=== PATIENT | female | born 1945 | race Caucasian/White ===

== ENCOUNTER → 2016-08-13 | Outpatient (CLI) | payer MEDICARE, OTHER | END | disposition home or self-care (01) | LOC: CFH 11:56 | PROVIDERS: ATTEND Internal Medicine Cardiovascular Disease | DX: I08.3 Combined rheumatic disorders of mitral, aortic and tricuspid valves (principal) | CPT/HCPCS: 93306 ==

== ENCOUNTER 2016-09-04 10:12 | Day surgery (SDC) | payer MEDICARE, OTHER ==
[2016-09-03 15:04] VITALS: BP 161/62
[~2016-09-04] VITALS: Ht 162.6 cm; Wt 47.7 kg
[~2016-09-04 10:12] MED LIST: ATOR10TA PO; LISI-167 PO; MESA800T2 PO
[2016-09-04] MEDS ORDERED: SODIUM CHLORIDE 0.9% 1,000 ML IV SCH (11:00)
== END 2016-09-04 13:51 | disposition home or self-care (01) ==
LOC: CACL 10:12 → EDSTATUS 12:30 → CACL 13:51
PROVIDERS: ATTEND Internal Medicine Cardiovascular Disease
DX: I34.0 Nonrheumatic mitral (valve) insufficiency (principal); I35.1 Nonrheumatic aortic (valve) insufficiency; I36.1 Nonrheumatic tricuspid (valve) insufficiency; I44.7 Left bundle-branch block, unspecified; I10 Essential (primary) hypertension; Z88.2 Allergy status to sulfonamides; E78.2 Mixed hyperlipidemia
CPT/HCPCS: 93312; 93325

== ENCOUNTER 2016-11-05 09:52 | Day surgery (SDC) | payer MEDICARE, OTHER ==
[~2016-11-05] VITALS: Ht 162.6 cm; Wt 47.3 kg
[2016-11-05] MEDS ORDERED: BISACODYL 10 MG SUPP PR PRN (11:30)
[2016-11-05] MEDS ORDERED: BISACODYL 5 MG EC TABLET PO PRN (11:30)
[2016-11-05] MEDS ORDERED: ASPIRIN 325 MG TABLET EC PO ONE (11:30)
[2016-11-05] MEDS ORDERED: ONDANSETRON 2MG/ML, 2ML IVPush PRN (11:30)
[2016-11-05] MEDS ORDERED: ACETAMINOPHEN 325 MG TABLET PO PRN (11:30)
[2016-11-05] MEDS ORDERED: ZOLPIDEM 5MG TABLET PO PRN (11:30)
[2016-11-05 12:09] LABS: HEMATOCRIT 40.4 % (34.6-47.8); HEMOGLOBIN 13.1 g/dL (11.7-16.4); WHITE BLOOD COUNT 8.2 x10^3/uL (3.4-10)
[2016-11-05 12:17] LABS: BLOOD UREA NITROGEN 19 mg/dL (7-18)
[2016-11-05] MEDS ORDERED: BIVALIRUDIN 250 MG ONE (13:45)
[2016-11-05] MEDS ORDERED: TICAGRELOR 90 MG TABLET ONE (13:45)
[2016-11-05] MEDS ORDERED: VERAPAMIL 2.5 MG/ML, 2ML ONE (13:45)
[2016-11-05] MEDS ORDERED: MIDAZOLAM 1 MG/ML, 5ML ONE ×2 (13:45→14:44)
[2016-11-05] MEDS ORDERED: FENTANYL PF 100 MCG/2ML ONE (13:45)
[2016-11-05] MEDS ORDERED: LIDOCAINE 2%, 20ML ONE (13:46)
[2016-11-05] MEDS ORDERED: HEPARIN 1,000 UNITS/ML, 10ML ONE (13:46)
[2016-11-05] MEDS ORDERED: SODIUM CHLORIDE 0.9% 1,000 ML IV SCH (14:57)
== END 2016-11-05 16:30 ==
LOC: CACL 09:52
PROVIDERS: ATTEND Internal Medicine Cardiovascular Disease
DX: I34.0 Nonrheumatic mitral (valve) insufficiency (principal); E78.2 Mixed hyperlipidemia; I10 Essential (primary) hypertension; Z88.1 Allergy status to other antibiotic agents
CPT/HCPCS: 36415; 71020; 80048; 85025; 93458; 99156; C1769; C1894; J1644; J2250; J3010; J3490; Q9967; J0583

== ENCOUNTER 2016-11-14 04:35 | Inpatient (IN) | payer MEDICARE, OTHER ==
[2016-11-13 14:14] LABS: HEMATOCRIT 39.6 % (34.6-47.8); HEMOGLOBIN 12.9 g/dL (11.7-16.4); WHITE BLOOD COUNT 8.5 x10^3/uL (3.4-10)
[2016-11-13 14:23] LABS: ASPARTATE AMINO TRANSFERASE 23 U/L (15-37); BLOOD UREA NITROGEN 18 mg/dL (7-18)
[~2016-11-14] VITALS: Ht 162.6 cm; Wt 49.0 kg
[2016-11-14] MEDS ORDERED: ALBUMIN HUMAN 5% 500 ML IV ONE ×2 (05:00→19:30)
[2016-11-14 05:30] VITALS: BP_SYST 139; BP_SYST 148; BP_DIAS 74; BP_DIAS 75
[2016-11-14] MEDS ORDERED: CHLORHEXIDINE MOUTHWASH 15 ML UDC MM SCH (06:00)
[2016-11-14] MEDS: MUPIROCIN OINT 2%, 22GM TP SCH ×2 (06:17→20:48)
[2016-11-14 06:22] VITALS: BP 137/64
[2016-11-14] MEDS ORDERED: FENTANYL PF 1000 MCG/20ML ONE (06:29)
[2016-11-14] MEDS ORDERED: MIDAZOLAM 10MG/2 ML ONE (06:29)
[2016-11-14] MEDS ORDERED: POTASSIUM CHLORIDE 80 MEQ, SODIUM BICARBONATE 8.4% 10 MEQ, MAGNESIUM SULFATE 0.5 GM, LI... IV PRN (07:30)
[2016-11-14] MEDS ORDERED: VANCOMYCIN 800 MG in SODIUM CHLORIDE 0.9% 100 ML IV PRN (07:30)
[2016-11-14] MEDS ORDERED: DEXMEDETOMIDINE 200 MCG in SODIUM CHLORIDE 0.9% 48 ML IV SCH (07:30)
[2016-11-14] MEDS ORDERED: PHENYLEPHRINE 10 MG in SODIUM CHLORIDE 0.9% 249 ML IV PRN ×3 (07:30→19:30)
[2016-11-14] MEDS ORDERED: CEFUROXIME 1.5 GM in SODIUM CHLORIDE 0.9% 50 ML IVPB PRN (07:30)
[2016-11-14] MEDS ORDERED: REGULAR INSULIN 62.5 UNITS in SODIUM CHLORIDE 0.9% 249.375 ML IV PRN ×2 (07:30→10:03)
[2016-11-14] MEDS ORDERED: EPINEPHRINE 2 MG in SODIUM CHLORIDE 0.9% 248 ML IV SCH (07:30)
[2016-11-14] MEDS ORDERED: MANNITOL PMX 20% 500 ML IVPB PRN (07:30)
[2016-11-14] MEDS: SODIUM CHLORIDE FLUSH 10ML SYR IVF SCH ×3 (09:00→20:47)
[2016-11-14] MEDS ORDERED: NITROGLYCERIN/D5W PMX 250 ML IV PRN (10:03)
[2016-11-14] MEDS ORDERED: DEXMEDETOMIDINE 200 MCG in SODIUM CHLORIDE 0.9% 48 ML IV PRN (10:03)
[2016-11-14] MEDS ORDERED: DOBUTAMINE 250 MG in SODIUM CHLORIDE 0.9% 230 ML IV PRN (10:03)
[2016-11-14] MEDS ORDERED: SODIUM CHLORIDE 0.9% 1,000 ML IV PRN (10:03)
[2016-11-14] MEDS ORDERED: AMINOCAPROIC ACID 250 MG/ML, 20ML ONE (10:17)
[2016-11-14] MEDS ORDERED: LIDOCAINE 2% 100MG/5ML SYRINGE ONE (10:17)
[2016-11-14] MEDS ORDERED: CALCIUM CHLORIDE 10%, 10ML SYR ONE (10:17)
[2016-11-14] MEDS ORDERED: PROTAMINE SULFATE 10 MG/ML, 25ML ONE (10:17)
[2016-11-14] MEDS ORDERED: HEPARIN 1,000 UNITS/ML, 30ML ONE (10:17)
[2016-11-14] MEDS ORDERED: ALBUMIN HUMAN 25% 50 ML ONE (10:17)
[2016-11-14] MEDS ORDERED: methylPREDNISolone SOD SUCC 125 MG/2 ML ONE (10:18)
[2016-11-14] MEDS ORDERED: ACETAMINOPHEN 325 MG TABLET PO PRN (10:30)
[2016-11-14] MEDS ORDERED: MIDAZOLAM 1 MG/ML, 5ML IVPush PRN (10:30)
[2016-11-14] MEDS ORDERED: ACETAMINOPHEN 650 MG SUPP PR PRN (10:30)
[2016-11-14] MEDS ORDERED: MEPERIDINE/PF 25MG/0.5ML IVPush PRN (10:30)
[2016-11-14] MEDS ORDERED: EPINEPHRINE 2 MG in SODIUM CHLORIDE 0.9% 248 ML IV PRN (10:30)
[2016-11-14] MEDS ORDERED: BISACODYL 10 MG SUPP PR PRN (10:30)
[2016-11-14] MEDS ORDERED: DEXTROSE 4 GM TAB.CHEW PO PRN (10:30)
[2016-11-14] MEDS: KSCALE TO 4.5 IV SCH ×3 (10:30→22:30)
[2016-11-14] MEDS ORDERED: INSULIN ASPART 100 UNITS/ML, PEN SQ-INSULIN PRN (10:30)
[2016-11-14] MEDS ORDERED: SODIUM BICARB 8.4%, 50ML SYRINGE IV PRN (10:30)
[2016-11-14] MEDS ORDERED: VANCOMYCIN 700 MG in SODIUM CHLORIDE 0.9% 250 ML IVPB SCH (10:30)
[2016-11-14] MEDS ORDERED: CEFUROXIME 1.5 GM in SODIUM CHLORIDE 0.9% 50 ML IVPB SCH (10:30)
[2016-11-14] MEDS ORDERED: DEXTROSE 50%, 50ML SYRINGE IVPush PRN (10:30)
[2016-11-14] MEDS ORDERED: PROCHLORPERAZINE 5 MG/ML, 2ML IVPush PRN (10:30)
[2016-11-14] MEDS ORDERED: GLUCAGON 1 MG IM PRN (10:30)
[2016-11-14 10:44] LABS: ABG COLLECTION SITE ARTERIAL LINE
[2016-11-14] MEDS: MAGNESIUM SULFATE 1 GM in SODIUM CHLORIDE 0.9% 50 ML IVPB SCH (10:45)
[2016-11-14 10:54] LABS: HEMATOCRIT 25.9 % (34.6-47.8); HEMOGLOBIN 8.5 g/dL (11.7-16.4)
[2016-11-14] MEDS ORDERED: POTASSIUM CHLORIDE PMX 100 ML IV ONE (11:30)
[2016-11-14] MEDS: LACTATED RINGERS 500 ML IVBOLUS PRN ×2 (12:00→13:00)
[2016-11-14] MEDS: morphine SULFATE 10 MG/ML, 1ML IVPush PRN (14:46)
[2016-11-14] MEDS: ONDANSETRON 2MG/ML, 2ML IVPush PRN ×2 (16:19→20:07)
[2016-11-14] MEDS: LACTATED RINGERS 1,000 ML IV PRN ×2 (16:40→17:45)
[2016-11-14 17:07] LABS: HEMATOCRIT 25.5 % (34.6-47.8); HEMOGLOBIN 8.2 g/dL (11.7-16.4)
[2016-11-14] MEDS ORDERED: POTASSIUM CHLORIDE 30 MEQ in SODIUM CHLORIDE 0.9% 100 ML IV ONE (19:00)
[2016-11-14] MEDS ORDERED: CALCIUM CHLORIDE 13.6 MEQ in SODIUM CHLORIDE 0.9% 100 ML IV ONE (19:30)
[2016-11-14] MEDS ORDERED: ALBUMIN HUMAN 25% 100 ML IV ONE (20:30)
[2016-11-14] MEDS: CEFUROXIME 1.5 GM in SODIUM CHLORIDE 0.9% 50 ML IVPB SCH (20:46)
[2016-11-14] MEDS: MUPIROCIN OINT 2%, 22GM NAS SCH (20:48)
[2016-11-14] MEDS: DOCUSATE 100 MG CAPSULE PO SCH (20:48)
[2016-11-14] MEDS: VANCOMYCIN 700 MG in SODIUM CHLORIDE 0.9% 100 ML IVPB SCH (21:33)
[2016-11-14 22:15] LABS: HEMATOCRIT 25.1 % (34.6-47.8); HEMOGLOBIN 8.2 g/dL (11.7-16.4)
[2016-11-15] VITALS (8 sets, daily range): BP systolic 110–129; BP diastolic 45–65
[2016-11-15] MEDS: HYDROcodone/APAP 10/325 MG TABLET PO PRN ×4 (00:08→20:39)
[2016-11-15] MEDS: morphine SULFATE 10 MG/ML, 1ML IVPush PRN (02:03)
[2016-11-15] MEDS: OXYcodone IR 5MG TABLET PO PRN ×2 (02:03→16:19)
[2016-11-15 04:53] LABS: ABG COLLECTION SITE ARTERIAL LINE
[2016-11-15 05:00] LABS: BLOOD UREA NITROGEN 13 mg/dL (7-18)
[2016-11-15 05:05] LABS: HEMATOCRIT 24.4 % (34.6-47.8); WHITE BLOOD COUNT 13.7 x10^3/uL (3.4-10)
[2016-11-15] MEDS: INSULIN ASPART 100 UNITS/ML, PEN SQ-INSULIN SCH ×2 (07:03→11:33)
[2016-11-15] MEDS ORDERED: ROCURONIUM 10 MG/ML ONE (07:21)
[2016-11-15] MEDS ORDERED: PROPOFOL 10 MG/ML, 20ML ONE (07:21)
[2016-11-15] MEDS: KSCALE TO 4.5 IV SCH ×2 (07:33→11:29)
[2016-11-15] MEDS: CEFUROXIME 1.5 GM in SODIUM CHLORIDE 0.9% 50 ML IVPB SCH (07:44)
[2016-11-15] MEDS: MUPIROCIN OINT 2%, 22GM NAS SCH ×2 (08:27→20:39)
[2016-11-15] MEDS: ONDANSETRON 2MG/ML, 2ML IVPush PRN (08:27)
[2016-11-15] MEDS: SODIUM CHLORIDE FLUSH 10ML SYR IVF SCH ×4 (08:27→20:39)
[2016-11-15] MEDS: PANTOPRAZOLE 40 MG IV IVPush SCH (08:27)
[2016-11-15] MEDS: MUPIROCIN OINT 2%, 22GM TP SCH ×2 (08:28→20:39)
[2016-11-15] MEDS: DOCUSATE 100 MG CAPSULE PO SCH ×2 (08:28→20:39)
[2016-11-15] MEDS: ASPIRIN 81 MG TABLET EC PO SCH (08:28)
[2016-11-15] MEDS: VANCOMYCIN 700 MG in SODIUM CHLORIDE 0.9% 100 ML IVPB SCH (09:14)
[2016-11-15] MEDS: CHLORHEXIDINE MOUTHWASH 15 ML UDC MM SCH ×2 (10:11→22:30)
[2016-11-15] MEDS: MAGNESIUM SULFATE 1 GM in SODIUM CHLORIDE 0.9% 50 ML IVPB SCH (10:11)
[2016-11-15 11:09] LABS: HEMATOCRIT 23.5 % (34.6-47.8); HEMOGLOBIN 7.7 g/dL (11.7-16.4)
[2016-11-15] MEDS ORDERED: ALBUMIN HUMAN 5% 500 ML IV ONE (13:00)
[2016-11-15 17:00] LABS: HEMOGLOBIN 7.3 g/dL (11.7-16.4)
[2016-11-15 17:01] LABS: HEMATOCRIT 22.6 % (34.6-47.8)
[2016-11-15] MEDS ORDERED: WARFARIN 5 MG TABLET PO-COUM SCH (18:00)
[2016-11-16] MEDS: OXYcodone IR 5MG TABLET PO PRN ×4 (02:35→18:10)
[2016-11-16] MEDS: HYDROcodone/APAP 10/325 MG TABLET PO PRN (02:35)
[2016-11-16 05:36] LABS: HEMATOCRIT 38.7 % (34.6-47.8); HEMOGLOBIN 12.5 g/dL (11.7-16.4); WHITE BLOOD COUNT 14.5 x10^3/uL (3.4-10)
[2016-11-16 06:22] LABS: BLOOD UREA NITROGEN 14 mg/dL (7-18)
[2016-11-16] MEDS: ASPIRIN 81 MG TABLET EC PO SCH (08:10)
[2016-11-16] MEDS: DOCUSATE 100 MG CAPSULE PO SCH ×2 (08:10→20:20)
[2016-11-16] MEDS: POTASSIUM CHLORIDE 10 MEQ TABLET.ER PO SCH (08:10)
[2016-11-16] MEDS ORDERED: FUROSEMIDE 20 MG/2 ML IV SCH (09:00)
[2016-11-16] MEDS ORDERED: ENOXAPARIN 40 MG/0.4 ML SQ SCH (09:00)
[2016-11-16] MEDS ORDERED: MAGNESIUM HYDROXIDE 8%, 30ML UDC PO PRN (09:00)
[2016-11-16] MEDS: SODIUM CHLORIDE FLUSH 10ML SYR IVF SCH ×5 (09:00→20:21)
[2016-11-16] MEDS: MUPIROCIN OINT 2%, 22GM TP SCH ×2 (09:00→20:21)
[2016-11-16] MEDS: PANTOPRAZOLE 40 MG IV IVPush SCH (09:20)
[2016-11-16] MEDS: MUPIROCIN OINT 2%, 22GM NAS SCH ×2 (09:21→20:21)
[2016-11-16] MEDS: MAGNESIUM SULFATE 1 GM in SODIUM CHLORIDE 0.9% 50 ML IVPB SCH (09:58)
[2016-11-16] MEDS: CHLORHEXIDINE MOUTHWASH 15 ML UDC MM SCH ×2 (09:59→20:21)
[2016-11-16 16:38] VITALS: BP 146/74
[2016-11-16] MEDS ORDERED: WARFARIN 5 MG TABLET PO-COUM SCH (18:00)
[2016-11-16 20:15] VITALS: BP 133/75
[2016-11-17 02:19] VITALS: BP 149/78
[2016-11-17] MEDS: OXYcodone IR 5MG TABLET PO PRN (05:51)
[2016-11-17] MEDS: BISACODYL 5 MG EC TABLET PO PRN ×2 (05:51→15:53)
[2016-11-17 06:13] LABS: BLOOD UREA NITROGEN 16 mg/dL (7-18)
[2016-11-17 06:15] LABS: HEMATOCRIT 39.4 % (34.6-47.8); HEMOGLOBIN 12.7 g/dL (11.7-16.4); WHITE BLOOD COUNT 11.1 x10^3/uL (3.4-10)
[2016-11-17 08:06] VITALS: BP 139/74
[2016-11-17] MEDS: SODIUM CHLORIDE FLUSH 10ML SYR IVF SCH ×2 (08:14→21:06)
[2016-11-17] MEDS: MUPIROCIN OINT 2%, 22GM NAS SCH ×2 (08:14→21:07)
[2016-11-17] MEDS: PANTOPRAZOLE 40 MG IV IVPush SCH (08:14)
[2016-11-17] MEDS: DOCUSATE 100 MG CAPSULE PO SCH ×3 (08:14→21:07)
[2016-11-17] MEDS: POTASSIUM CHLORIDE 10 MEQ TABLET.ER PO SCH ×2 (08:14→09:00)
[2016-11-17] MEDS: FUROSEMIDE 20 MG/2 ML IV SCH ×2 (08:14→21:00)
[2016-11-17] MEDS: ASPIRIN 81 MG TABLET EC PO SCH ×2 (08:14→09:00)
[2016-11-17] MEDS ORDERED: GLUCAGON 1 MG IM PRN (15:30)
[2016-11-17] MEDS ORDERED: ACETAMINOPHEN 650 MG SUPP PR PRN (15:30)
[2016-11-17] MEDS ORDERED: DEXTROSE 4 GM TAB.CHEW PO PRN (15:30)
[2016-11-17] MEDS ORDERED: SODIUM CHLORIDE 0.9% 1,000 ML IV PRN (15:30)
[2016-11-17] MEDS ORDERED: BISACODYL 10 MG SUPP PR PRN (15:30)
[2016-11-17] MEDS ORDERED: DEXTROSE 50%, 50ML SYRINGE IVPush PRN (15:30)
[2016-11-17] MEDS: HYDROcodone/APAP 10/325 MG TABLET PO PRN (21:26)
[2016-11-18 05:18] VITALS: BP 114/55
[2016-11-18 05:54] LABS: HEMATOCRIT 36.9 % (34.6-47.8); WHITE BLOOD COUNT 7.3 x10^3/uL (3.4-10)
[2016-11-18 06:43] LABS: BLOOD UREA NITROGEN 12 mg/dL (7-18)
[2016-11-18] MEDS: DOCUSATE 100 MG CAPSULE PO SCH ×2 (09:00→21:01)
[2016-11-18] MEDS: SODIUM CHLORIDE FLUSH 10ML SYR IVF SCH ×2 (10:46→21:01)
[2016-11-18] MEDS: ASPIRIN 81 MG TABLET EC PO SCH (10:46)
[2016-11-18] MEDS: PANTOPRAZOLE 40 MG IV IVPush SCH (10:46)
[2016-11-18] MEDS: MUPIROCIN OINT 2%, 22GM NAS SCH ×2 (10:46→21:01)
[2016-11-18] MEDS: POTASSIUM CHLORIDE 10 MEQ TABLET.ER PO SCH (10:46)
[2016-11-18] MEDS ORDERED: LIDOCAINE 1%, 20ML ONE (14:03)
[2016-11-18] MEDS ORDERED: WARFARIN 2.5 MG TABLET PO-COUM SCH (18:00)
[2016-11-19] MEDS: OXYcodone IR 5MG TABLET PO PRN ×2 (01:28→05:38)
[2016-11-19 04:00] VITALS: BP 136/72
[2016-11-19 04:50] LABS: BLOOD UREA NITROGEN 9 mg/dL (7-18)
[2016-11-19] MEDS: SODIUM CHLORIDE FLUSH 10ML SYR IVF SCH ×2 (09:34→22:14)
[2016-11-19] MEDS: PANTOPRAZOLE 40 MG IV IVPush SCH (09:35)
[2016-11-19] MEDS: ASPIRIN 81 MG TABLET EC PO SCH (09:35)
[2016-11-19] MEDS: MUPIROCIN OINT 2%, 22GM NAS SCH ×2 (09:35→22:13)
[2016-11-19] MEDS: POTASSIUM CHLORIDE 10 MEQ TABLET.ER PO SCH (09:35)
[2016-11-19] MEDS: DOCUSATE 100 MG CAPSULE PO SCH ×2 (09:35→21:00)
[2016-11-19 12:49] VITALS: BP 112/58
[2016-11-19] MEDS ORDERED: WARFARIN 5 MG TABLET PO-COUM ONE (18:00)
[2016-11-19 19:03] VITALS: BP 132/79
[2016-11-20] MEDS: OXYcodone IR 5MG TABLET PO PRN (00:25)
[2016-11-20 00:26] VITALS: BP 155/77
[2016-11-20 05:22] LABS: HEMATOCRIT 35.9 % (34.6-47.8); HEMOGLOBIN 11.5 g/dL (11.7-16.4); WHITE BLOOD COUNT 6.7 x10^3/uL (3.4-10)
[2016-11-20 05:34] LABS: BLOOD UREA NITROGEN 5 mg/dL (7-18)
[2016-11-20 06:46] VITALS: BP 145/75
[2016-11-20] MEDS ORDERED: MAGNESIUM HYDROXIDE 8%, 30ML UDC PO PRN (08:00)
[2016-11-20] MEDS: MESALAMINE PO SCH ×2 (09:00→19:52)
[2016-11-20] MEDS: MUPIROCIN OINT 2%, 22GM NAS SCH ×2 (09:42→19:51)
[2016-11-20] MEDS: SODIUM CHLORIDE FLUSH 10ML SYR IVF SCH ×2 (09:42→19:52)
[2016-11-20] MEDS: DOCUSATE 100 MG CAPSULE PO SCH ×2 (09:42→19:52)
[2016-11-20] MEDS: ASPIRIN 81 MG TABLET EC PO SCH (09:43)
[2016-11-20] MEDS: POTASSIUM CHLORIDE 10 MEQ TABLET.ER PO SCH (09:43)
[2016-11-20] MEDS: PANTOPRAZOLE 40 MG IV IVPush SCH (09:45)
[2016-11-20] MEDS: ONDANSETRON 2MG/ML, 2ML IVPush PRN (10:54)
[2016-11-20] MEDS ORDERED: PNEUMOCOCCAL 23 VACCINE IM-VACC ONE (12:30)
[2016-11-20 12:45] VITALS: BP 126/74
[2016-11-20] MEDS ORDERED: WARFARIN 2.5 MG TABLET PO-COUM ONE (18:00)
[2016-11-20 19:53] VITALS: BP 149/72
[2016-11-21 00:59] VITALS: BP 149/68
[2016-11-21] MEDS: ACETAMINOPHEN 325 MG TABLET PO PRN (00:59)
[2016-11-21 05:11] LABS: BLOOD UREA NITROGEN 8 mg/dL (7-18)
[2016-11-21] MEDS: MESALAMINE PO SCH ×2 (07:19→21:10)
[2016-11-21] MEDS: DOCUSATE 100 MG CAPSULE PO SCH ×2 (07:20→21:11)
[2016-11-21] MEDS: ASPIRIN 81 MG TABLET EC PO SCH (07:34)
[2016-11-21] MEDS: SODIUM CHLORIDE FLUSH 10ML SYR IVF SCH ×2 (07:34→21:10)
[2016-11-21 07:49] VITALS: BP 126/65
[2016-11-21 14:00] VITALS: BP 145/77
[2016-11-21] MEDS: PANTOPROZOLE 40MG TABLET PO SCH (15:20)
[2016-11-21] MEDS: POTASSIUM CHLORIDE 10 MEQ TABLET.ER PO SCH (15:21)
[2016-11-21 18:46] VITALS: BP 170/84
[2016-11-21 20:03] VITALS: BP 146/73
[2016-11-21 20:49] VITALS: BP 132/73
[2016-11-21] MEDS: MELATONIN 3 MG TABLET PO PRN (21:11)
[2016-11-22 01:02] VITALS: BP 142/77
[2016-11-22 06:15] LABS: BLOOD UREA NITROGEN 11 mg/dL (7-18)
[2016-11-22] MEDS: ASPIRIN 81 MG TABLET EC PO SCH (07:43)
[2016-11-22] MEDS: POTASSIUM CHLORIDE 10 MEQ TABLET.ER PO SCH (07:43)
[2016-11-22] MEDS: DOCUSATE 100 MG CAPSULE PO SCH ×2 (07:43→21:07)
[2016-11-22] MEDS: PANTOPROZOLE 40MG TABLET PO SCH (07:43)
[2016-11-22 07:45] VITALS: BP 124/78
[2016-11-22 08:03] VITALS: BP 122/75
[2016-11-22] MEDS: MESALAMINE PO SCH ×2 (09:00→21:07)
[2016-11-22] MEDS: SODIUM CHLORIDE FLUSH 10ML SYR IVF SCH ×2 (09:33→21:06)
[2016-11-22] MEDS: ACETAMINOPHEN 325 MG TABLET PO PRN (11:09)
[2016-11-22] MEDS ORDERED: ASPI-621 PO (11:19)
[2016-11-22] MEDS ORDERED: MELA3TAB PO (11:19)
[2016-11-22] MEDS ORDERED: WARF2TAB PO-COUM (11:19)
[2016-11-22] MEDS ORDERED: DOCU-30 PO (11:19)
[2016-11-22 13:43] VITALS: BP 117/71
[2016-11-22] MEDS ORDERED: WARFARIN 2 MG TABLET PO-COUM ONE (18:00)
[2016-11-22] MEDS: MELATONIN 3 MG TABLET PO PRN (21:07)
[2016-11-22 21:19] VITALS: BP 116/79
[2016-11-22] MEDS: HYDROcodone/APAP 10/325 MG TABLET PO PRN (22:28)
[2016-11-22 23:01] VITALS: BP 125/70
[2016-11-22] MEDS: AMIODARONE 200 MG TABLET PO SCH (23:53)
[2016-11-23 03:38] VITALS: BP 117/72
[2016-11-23 06:15] LABS: BLOOD UREA NITROGEN 17 mg/dL (7-18)
[2016-11-23] MEDS: PANTOPROZOLE 40MG TABLET PO SCH (07:33)
[2016-11-23] MEDS: ASPIRIN 81 MG TABLET EC PO SCH (07:33)
[2016-11-23] MEDS: POTASSIUM CHLORIDE 10 MEQ TABLET.ER PO SCH (07:33)
[2016-11-23] MEDS: DOCUSATE 100 MG CAPSULE PO SCH (07:33)
[2016-11-23] MEDS: AMIODARONE 200 MG TABLET PO SCH (07:33)
[2016-11-23] MEDS: MESALAMINE PO SCH (07:34)
[2016-11-23] MEDS: SODIUM CHLORIDE FLUSH 10ML SYR IVF SCH (07:34)
[2016-11-23 07:36] VITALS: BP 117/78
[2016-11-23] MEDS ORDERED: MELATONIN 3 MG TABLET PO PRN (09:30)
[2016-11-23] MEDS ORDERED: AMIO200T42 PO (09:31)
[2016-11-23] MEDS ORDERED: PANT40TA3 PO (09:32)
[2016-11-23] MEDS ORDERED: POTA10TA11 PO (09:34)
[2016-11-23] MEDS ORDERED: HYDR-3307 PO (09:36)
[2016-11-23] MEDS ORDERED: FURO-93 PO (09:58)
[2016-11-23] MEDS ORDERED: HYDR-3138 PO (09:59)
[2016-11-23] MEDS ORDERED: WARFARIN 2 MG TABLET PO-COUM ONE (18:00)
[2016-11-23] MEDS ORDERED: DOCUSATE 100 MG CAPSULE PO SCH (21:00)
== END 2016-11-23 14:01 | disposition home health service (06) | DRG 219 ==
LOC: 5SO 04:35 → CSU 09:34 → 5SO 11-16 16:44 → CCU 11-17 09:44 → ICU 11-17 17:02 → 5SO 11-19 12:40
PROVIDERS: ADMIT Thoracic Surgery (Cardiothoracic Vascular Surgery); ATTEND Thoracic Surgery (Cardiothoracic Vascular Surgery)
PROC: B246ZZ4 Ultrasonography of Right and Left Heart, Transesophageal (ICD-10-PCS; 2016-11-14)
PROC: 5A1221Z Performance of Cardiac Output, Continuous (ICD-10-PCS; 2016-11-14)
PROC: 02UG0JZ Supplement Mitral Valve with Synthetic Substitute, Open Approach (ICD-10-PCS; principal; 2016-11-14 07:30)
PROC: 30233N1 Transfusion of Nonautologous Red Blood Cells into Peripheral Vein, Percutaneous Approach (ICD-10-PCS; 2016-11-15)
PROC: 0W9B3ZZ Drainage of Left Pleural Cavity, Percutaneous Approach (ICD-10-PCS; 2016-11-18)
PROC: 0W993ZZ Drainage of Right Pleural Cavity, Percutaneous Approach (ICD-10-PCS; 2016-11-19)
DX: I34.0 Nonrheumatic mitral (valve) insufficiency (principal); E43 Unspecified severe protein-calorie malnutrition; J90 Pleural effusion, not elsewhere classified; K50.90 Crohn's disease, unspecified, without complications; I10 Essential (primary) hypertension; E78.5 Hyperlipidemia, unspecified; E03.9 Hypothyroidism, unspecified; F17.200 Nicotine dependence, unspecified, uncomplicated; E87.70 Fluid overload, unspecified; Z79.01 Long term (current) use of anticoagulants; Z88.2 Allergy status to sulfonamides; Z79.899 Other long term (current) drug therapy
CPT/HCPCS: 32555; 36415; 36600; 71010; 71020; 80048; 80053; 81003; 82040; 82330; 82800; 82803; 82810; 82947; 82962; 83036; 83735; 84132; 84295; 85014; 85018; 85025; 85049; 85347; 85610; 85730; 86850; 86900; 86923; 87081; 90732; 93005; 93306; 93312; 93321; 93325; 93880; 94002; J0697; J1644; J1815; J2175; J2250; J2405; J2704; J2720; J3010; J3370; J3475; J3480; J3490; J7120; P9045; P9047; C1751; C1760; C9113; J0171; J0780; J1940; J2270; J2370; J2930; J7050; P9016

== ENCOUNTER → 2017-01-20 | Outpatient (CLI) | payer MEDICARE, OTHER ==
[~2017-01-20] MED LIST changes: +AMIO200T42 PO; +ASPI-621 PO; +DOCU-131 PO; +FURO-93 PO; +HYDR-3237 PO; +HYDR-3307 PO; +MELA3TAB2 PO; +PANT40TA3 PO; +POTA10TA11 PO; +WARF2TAB PO-COUM
== END | disposition home or self-care (01) ==
LOC: CFH 15:57
PROVIDERS: ATTEND Internal Medicine Cardiovascular Disease
DX: E78.2 Mixed hyperlipidemia (principal)
CPT/HCPCS: 71020

== ENCOUNTER → 2018-05-04 | Outpatient (CLI) | payer MEDICARE, OTHER ==
[~2018-05-04] MED LIST changes: -ASPI-621 PO; +ASPI81TA45 PO
== END | disposition home or self-care (01) ==
LOC: CFH 14:33
PROVIDERS: ATTEND Internal Medicine Cardiovascular Disease
DX: I08.1 Rheumatic disorders of both mitral and tricuspid valves (principal); I10 Essential (primary) hypertension; E78.5 Hyperlipidemia, unspecified
CPT/HCPCS: 93306

== ENCOUNTER → 2018-08-31 | Outpatient (CLI) | payer MEDICARE, OTHER | END | disposition home or self-care (01) | LOC: CFH 09:54 | PROVIDERS: ATTEND Family Medicine | DX: M81.0 Age-related osteoporosis without current pathological fracture (principal); Z78.0 Asymptomatic menopausal state | CPT/HCPCS: 77080 ==

== ENCOUNTER 2018-11-30 07:23 | Outpatient (CLI) | payer MEDICARE, OTHER | END 2018-11-30 23:59 | disposition home or self-care (01) | LOC: CFH 07:23 | PROVIDERS: ATTEND Internal Medicine Cardiovascular Disease | DX: I08.1 Rheumatic disorders of both mitral and tricuspid valves (principal); I10 Essential (primary) hypertension; E78.5 Hyperlipidemia, unspecified; J90 Pleural effusion, not elsewhere classified | CPT/HCPCS: 93306 ==

== ENCOUNTER → 2020-02-07 | Outpatient (CLI) | payer MEDICARE, OTHER ==
[~2020-02-07] MED LIST changes: +HYDR-3246 PO; -HYDR-3307 PO; -MELA3TAB2 PO; +MELA3TAB31 PO
== END | disposition home or self-care (01) ==
LOC: CFH 10:00
PROVIDERS: ATTEND Family Medicine
DX: J42 Unspecified chronic bronchitis (principal); Z95.2 Presence of prosthetic heart valve
CPT/HCPCS: 71046